=== PATIENT | female | born 1965 | race Caucasian/White ===

== ENCOUNTER 2022-02-11 07:54 | Day surgery (SDC) | payer OTHER ==
[~2022-02-11] VITALS: Ht 149.9 cm; Wt 59.0 kg
[2022-02-11] MEDS ORDERED: MIDAZOLAM 5 MG/5 ML VIAL ONE (08:35)
[2022-02-11] MEDS ORDERED: diphenhydrAMINE 50 MG/ML VIAL ONE (08:35)
[2022-02-11] MEDS ORDERED: fentaNYL citrate 0.05 MG/ML VIAL ONE (08:35)
[2022-02-11] MEDS ORDERED: LIDOCAINE 2% 100 MG/5 ML UJET TP ONE (08:35)
[2022-02-11] MEDS ORDERED: fentaNYL citrate 0.05 MG/ML VIAL IVP ONE (09:25)
[2022-02-11] MEDS ORDERED: MIDAZOLAM 5 MG/5 ML VIAL IV ONE (09:25)
== END 2022-02-11 10:13 | disposition home or self-care (01) ==
LOC: MDS 07:54 → MMU 07:55 → MDS 10:13
PROVIDERS: ATTEND Internal Medicine Gastroenterology
DX: Z12.11 Encounter for screening for malignant neoplasm of colon (principal); E78.5 Hyperlipidemia, unspecified; Z79.899 Other long term (current) drug therapy; Z20.822 Contact with and (suspected) exposure to COVID-19
CPT/HCPCS: 45378; 87426; J2250; J3010; J1200